=== PATIENT | male | born 1995 | race Caucasian/White ===

== ENCOUNTER 2017-06-21 19:39 | Emergency (ER) | payer OTHER ==
--- NOTE | 2017-06-21 19:47 | EDPHY ---
H & P Stated Complaint: pt fell skiing, lower inner gum lacerated from lower inner lip Time Seen by Provider: 06/21/17 19:47 HPI/ROS: HPI: This is a 22-year-old male who presents with Chief Complaint: pt fell skiing, lower inner gum lacerated from lower inner lip Location: lower inner gum Quality: Laceration Duration: 5 hr prior to arrival Signs and Symptoms: No LOC, No bleeding, no radiation, no numbness, no weakness , no tingling, no incontinence, no decreased range of motion, no swelling, no pain, no fever Timing: Acute Severity: [id number] Context: Patient is generally healthy, was skiing this afternoon and around 3: 00 p.m. Fell. He believes that he may have cut the inside of his lower lip. When he returned home several hours later; he looked at his inner lip in noted a significant laceration. Denies any dental trauma. Denies LOC/head injury/ neck pain/dizziness/nausea/vomiting/amnesia/dental loosening/dental pain/ epistaxis. Patient reports tetanus up-to-date. Patient admits to drinking 7 beers throughout the day. Drove self to the emergency room. Modifying Factors: None Comment: ROS: see HPI Constitutional: No fever, no chills, no weight loss Eyes: No blurred vision Respiratory: No shortness of breath, no cough Cardiovascular: No chest pain Gastrointestinal: No nausea, no vomiting no diarrhea Genitourinary: No dysuria Extremities: No myalgias Neurologic: No weakness, no numbness Skin: No rashes Hematologic: No bruising, no bleeding MEDICAL/SURGICAL/SOCIAL HISTORY: Medical history: Generally healthy. Does not take any regular medications. Surgical history: Denies Social history: Student. CONSTITUTIONAL: Young adult white male, well-developed well-nourished, awake and alert, no obvious distress HEENT: Atraumatic and normocephalic, PERRL, EOMI. no globe entrapment, no raccoon eyes. no Nguyen signs.Tympanic membranes clear. No tympanic membrane rupture. Nares patent; no septal hematoma. Oropharynx clear, no exudate and moist pink mucosa. 3 cm superficial laceration lower inner gum spoke sparing in the frenulum. No malocclusion. no dental trauma. Airway patent. No lymphadenopathy. NECK: supple, no midline tenderness, flexion 45 degrees, extension 45 degrees, right and left lateral flexion 45 degrees. No meningismus. Cardiovascular: Normal S1/S2, regular rate, regular rhythm, without murmur rub or gallop. PULMONARY/CHEST: Symmetrical and nontender. no crepitus. Clear to auscultation bilaterally. Good air movement. No accessory muscle usage. ABDOMEN: Soft, nondistended, nontender, no ecchymosis, no rebound, no guarding , no peritoneal signs, no masses or organomegaly. No CVAT. PELVIC: no pain with rocking; bilateral hips flexion 125 degrees, extension 30 degrees, with no pain internal rotation and no pain external rotation. BACK: No midline tenderness, no paraspinous spasm, deep tendon reflexes 2/2, no pain with straight leg raise EXTREMITIES: 2/2 pulses, no deformities, no clubbing, no cyanosis or edema. NEUROLOGICAL: no focal neuro deficits. GCS 15. SKIN: Warm and dry, no erythema. no rash. Good capillary refill. Source: Patient Exam Limitations: No limitations - Personal History Current Tetanus Diphtheria and Acellular Pertussis (TDAP): Yes - Medical/Surgical History Hx Asthma: No Hx Chronic Respiratory Disease: No Hx Diabetes: No Hx Cardiac Disease: No Hx Renal Disease: No Hx Cirrhosis: No Hx Alcoholism: No Hx HIV/AIDS: No Hx Splenectomy or Spleen Trauma: No Other PMH: tonsilectomy - Social History Smoking Status: Former smoker Constitutional: Initial Vital Signs Temperature (C) 37 C 06/21/17 19:42 Heart Rate 84 06/21/17 19:42 Respiratory Rate 14 06/21/17 19:42 Blood Pressure 125/77 H 06/21/17 19:42 O2 Sat (%) 96 06/21/17 19:42 O2 Delivery Mode Room Air Allergies/Adverse Reactions: No Known Allergies Allergy (Unverified 06/21/17 19:42) Home Medications: Medication Instructions Recorded Chlorhexidine Gluconate [Periogard] 15 ml MM Q4HRS #240 mouthwash 06/21/17 Medical Decision Making Procedures: Procedure: Laceration repair. Verbal consent was obtained from the patient. The 3 cm, complex, lower inner buccal mucosa laceration was anesthetized in the usual fashion using 6 mL of 0.5 % bupivacaine. The wound was irrigated, draped and explored to its base with a gloved finger. There were no deep structures involved. No tendon injury was identified. The wound was repaired with #7, 5 0 Vicryl. Good hemostasis achieved and patient tolerated procedure well. The procedure was performed by myself. ED Course/Re-evaluation: Wound care and laceration repair Tetanus up-to-date No neurological deficits. No indication for head CT scan or cervical CT scan based on [place] protocol. Offered patient CT maxillofacial scan and he politely declined as no pain; full range of motion of jaw. Rinsed with hydrogen peroxide; laceration repair. Verbal and written wound care instructions provided. This patient was seen under the supervision of my secondary supervising physician. I evaluated care for this patient independently. Differential Diagnosis: Differential diagnosis includes but is not limited to dental trauma, concussion , mandible fracture, oral laceration. Departure - Departure Disposition: Home, Routine, Self-Care Clinical Impression: Laceration of buccal mucosa without complication Qualifiers: Encounter type: initial encounter Qualified Code(s): S01.512A - Laceration without foreign body of oral cavity, initial encounter Condition: Good Instructions: Care For Your Absorbable Stitches (ED), Facial Laceration (ED) Additional Instructions: Take Tylenol 650 mg every 4 hours and/or Ibuprofen 600 mg every 8 hours with food as needed for pain. Use chlorhexidine mouthwash after every meal and at bedtime x5 days. Apply ice for 30 minutes at a time; 2-3 times per day for the next 1-2 days. If at any time you have dental loosening or pain, follow-up with your dentist. Sutures that were used to repair your laceration today are absorbable. They do not need to be removed. Return to the ER immediately if you have progressive headaches, neurologic deficits, gait abnormality, visual disturbance, slurred speech, or any other symptom that concerns you. Referrals: [facility],. [Clinic] - As per Instructions Prescriptions: Chlorhexidine Gluconate [Periogard] 15 ml MM Q4HRS #240 mouthwash
[2017-06-21 20:58] VITALS: BP 130/78
== END 2017-06-21 21:05 | disposition home or self-care (01) ==
DX: S01.512A Laceration without foreign body of oral cavity, initial encounter (principal); Z87.891 Personal history of nicotine dependence; V00.321A Fall from snow-skis, initial encounter; Y99.8 Other external cause status; Y93.23 Activity, snow (alpine) (downhill) skiing, snowboarding, sledding, tobogganing and snow tubing